=== PATIENT | female | born 1975 | race Two or more races ===

== ENCOUNTER 2024-09-28 13:53 | Outpatient (CLI) | payer OTHER | END 2024-09-28 13:58 | disposition home or self-care (01) | LOC: MAMO-SONO 13:53 | DX: Z12.39 Encounter for other screening for malignant neoplasm of breast (principal) ==

== ENCOUNTER → 2024-12-29 06:45 | Outpatient (CLI) | payer OTHER ==
[2024-12-29 08:00] LABS: BASO % 0.6 % (0.1-1.2); EOS # 0.09 (0.04-0.54); EOS % 1.3 % (0.7-7.0); LYMPH # 2.27 (1.18-3.74); LYMPH % 33.1 % (19.3-53.1); MEAN PLATELET VOLUME 9.90 fl (9.4-12.4); MONO # 0.53 (0.24-0.82); MONO % 7.7 % (4.7-12.5); NEUT # 3.90 (1.56-6.13); NEUT % 57.0 % (34.0-71.1); RED CELL DISTRIBUTION WIDTH 12.8 % (11.6-14.4)
[2024-12-29 08:17] LABS: URINE APPEARANCE Clear; URINE BILIRRUBIN Negative (NEGATIVE); URINE BLOOD Negative; URINE COLOR Yellow; URINE GLUCOSE Negative (NEGATIVE); URINE KETONE Negative (NEGATIVE); URINE LEUKOCYTE Negative; URINE NITRATE Negative; URINE PROTEIN Negative (NEGATIVE); URINE UROBILINOGEN 1.0 E.U./dl
[2024-12-29 08:18] LABS: URINE BACTERIA 814.7 uL (0.0-1933); URINE EPITHELIAL CELLS 10.3 uL (0.0-38.8); URINE RBC 7.6 uL (0.0-20.8); URINE WBC 7.2 uL (0.0-23.2)
[2024-12-29 08:21] LABS: URINE CAST 0.14 uL (0.0-1.40)
[2024-12-29 08:43] LABS: ALT/SGPT 49.0 U/L (12-78); AST/SGOT 27.0 U/L (15-37); BILIRUBIN TOTAL 0.64 mg/dL (0.3-1.2); BUN CREA RATIO 18.0 (7.0-25.0); CHOL HDL RATIO 3.1 (0-5.0); CREATININE SERUM 0.68 mg/dL (0.55-1.02); GFR 91.59; GLOBULINA 3.7 G/DL (2.4-3.5); GLUCOSE FASTING 96.0 mg/dL (65-100); HDL 67.0 mg/dl (40-60); LDL 116.0 mg/dl (0-130); OSMOLALITY SERUM 279.0 MOSM/KG (275-295); VLDL 27.0 (0-39)
[2024-12-30 06:06] LABS: hav igm Negative (Negative); hep b c Negative (Negative); hep b s ag Negative (Negative)
== END | disposition home or self-care (01) ==
LOC: LAB 06:45
DX: N95.1 Menopausal and female climacteric states (principal); D50.9 Iron deficiency anemia, unspecified; Z11.4 Encounter for screening for human immunodeficiency virus [HIV]; E11.9 Type 2 diabetes mellitus without complications; E78.2 Mixed hyperlipidemia; A53.9 Syphilis, unspecified